=== PATIENT | male | born 1990 | race Caucasian/White ===

== ENCOUNTER 2020-09-09 14:03 | Emergency (ER) | payer OTHER ==
[~2020-09-09] VITALS: Ht 177.8 cm; Wt 72.6 kg
[2020-09-09 14:08] VITALS: BP 119/71
--- NOTE | 2020-09-09 14:11 | NUR ---
PT AMBULATORY TO BED #6
--- NOTE | 2020-09-09 14:31 | NUR ---
29 Y/O MALE C/O LOWER ABD PAIN WITH CONSTIPATION X WEDNESDAY. PT RATES PAIN / THAT HE DESCRIBES PRESSURE AND NONRADIATING. PT STATES THAT THE PAIN IS INTERMITTENT AND IT COMES IN "WAVES". PT DENIES TAKING ANYTHING FOR PAIN. PT STATES THAT HE HAD BM THIS MORNING BUT 09/08/20 HE DID NOT. ABD IS FLAT, SOFT, AND HYPOACTIVE BOWEL SOUNDS X4 QUADS. PT DENIES N/V/D. PT A/O X4 WITH EVEN AND UNLABORED RESPIRATIONS. PT IN GOWN. MEDHX- DENIES NKA
--- NOTE | 2020-09-09 15:02 | NUR ---
DR RUIZ AT BEDSIDE EVALUATING PT
[2020-09-09] MEDS ORDERED: PANTOPRAZOLE 40 MG INJ VIAL IVP ONE (15:05)
[2020-09-09] MEDS ORDERED: KETOROLAC 15 MG/ML VIAL IVP ONE (15:05)
[2020-09-09 15:54] LABS: BASOPHILS % (AUTO) 0.2 % (0.0-2.0); EOSINOPHILS # (AUTO) 0.1 K/uL (0-0.4); EOSINOPHILS % (AUTO) 1.3 % (0.0-4.0); HEMATOCRIT 47.5 % (36-52); HEMOGLOBIN 16.3 g/dL (12.0-18.0); LYMPHOCYTES # (AUTO) 2.1 K/uL (2.0-11.5); MEAN CORPUSCULAR HEMOGLOBIN 31 pg (27-31); MEAN CORPUSCULAR HGB CONC 34 g/dL (33-37); MEAN CORPUSCULAR VOLUME 89.7 fL (80-94); MONOCYTES # (AUTO) 0.7 K/uL (0.8-1.0); MONOCYTES % (AUTO) 10.5 % (1.7-9.3); NEUTROPHILS # (AUTO) 3.8 K/uL (1.8-7.7); PLATELET COUNT (AUTO) 253 K/uL (140-450); RED BLOOD CELL COUNT(AUTO) 5.29 MIL/uL (4.20-6.10); RED CELL DISTRIBUTION WIDTH 12.8 % (11.6-13.7); WHITE BLOOD COUNT (AUTO) 6.7 K/uL (4.8-10.8)
--- NOTE | 2020-09-09 15:57 | NUR ---
PT TAKEN TO CT VIA W/C
[2020-09-09 16:05] LABS: APPEARANCE,URINE CLEAR (CLEAR); BILIRUBIN,URINE 1+ (NEGATIVE); BLOOD, URINE TRACE-I (NEGATIVE); COLOR,URINE YELLOW (YELLOW); LEUKOCYTE ESTERASE ,URINE NEGATIVE (NEGATIVE); NITRITE, URINE NEGATIVE (NEGATIVE); PH,URINE 5.5 (5.0-9.0); UGLUCOSE NEGATIVE (NEGATIVE)
[2020-09-09 16:07] LABS: ANION GAP 13.6 (8-16); CARBON DIOXIDE 29.3 mmol/L (21-32); POTASSIUM 3.9 mmol/L (3.5-5.1)
--- NOTE | 2020-09-09 16:09 | NUR ---
PT BACK FROM CT
[2020-09-09 16:13] LABS: ALBUMIN 3.9 g/dL (3.4-5.0); TOTAL BILIRUBIN 0.7 mg/dL (0.0-1.0)
--- NOTE | 2020-09-09 16:25 | NUR ---
PT STILL C/O ABDOMINAL PAIN. PT STATES PAIN INCREASED WHILE AT CT. PT STATES HE DOES NOT WANT ANY PAIN MEDS.
--- NOTE | 2020-09-09 17:14 | NUR ---
Dr. Cueto is reevaluating the patient at bedside.
--- NOTE | 2020-09-09 18:05 | NUR ---
PT GIVEN ORAL CONTRAST DRINK FOR CT GIVEN BY ANN HERNANDEZ TECH.
--- NOTE | 2020-09-09 18:15 | NUR ---
BEKAH BARRIOS SAMPLE COLLECTED AND WALKED TO LAB
--- NOTE | 2020-09-09 19:16 | NUR ---
GAVE REPORT TO PASTORA SORTO. TRANSFER OF CARE AT THIS TIME
--- NOTE | 2020-09-09 19:19 | NUR ---
RECEIVED REPORT FROM PASTORA MENESES FOR CONTINUITY OF CARE
--- NOTE | 2020-09-09 19:43 | NUR ---
OBTAINED INFORMED CONSENT REGARDING CT WITH CONTRAST; ERMD EXPLAINED THE PROCEDURE, RISKS AND BENEFITS OF PROCEDURE. PT ACKNOWLEGED AND SIGNED INFORMED CONSENT
--- NOTE | 2020-09-09 22:50 | NUR ---
ERMD AT BEDSIDE
[2020-09-09] MEDS ORDERED: MIRABULK PO (23:00)
[2020-09-10 04:05] VITALS: BP 127/83
== END 2020-09-09 23:18 | disposition home or self-care (01) ==
LOC: MED 14:03
DX: K52.9 Noninfective gastroenteritis and colitis, unspecified (principal)
CPT/HCPCS: 36415; 74174; 74176; 80053; 81003; 83690; 85025; 87426; 96374; 96375; 99285; C9113; J1885; Q9967

== ENCOUNTER 2023-03-23 12:35 | Emergency (ER) | payer OTHER ==
[~2023-03-23] VITALS: Ht 177.8 cm; Wt 70.3 kg
[~2023-03-23 12:35] MED LIST: MIRABULK PO
[2023-03-23 12:42] VITALS: BP 125/87; PULSE 96; RESP 16; TEMP 97.7; O2SAT 98
== END 2023-03-23 14:10 | disposition home or self-care (01) ==
LOC: MED 12:35
DX: M79.644 Pain in right finger(s) (principal); Z79.899 Other long term (current) drug therapy
CPT/HCPCS: 73130; 99283